=== PATIENT | female | born 1960 | race Caucasian/White ===

== ENCOUNTER 2016-08-24 10:55 | Emergency (ER) | payer OTHER ==
[~2016-08-24] VITALS: Ht 157.5 cm; Wt 57.5 kg
[~2016-08-24 10:55] MED LIST: ADVAIR 250/501 DISK IH; ADVAIR HFA120 INHAL1 IH; ANTIBIOTIC FOR UTI PO; CENTRUM SILVER1 EAC3 PO; CRESTOR40 MG PO; DESYREL100 MG PO; FLONASE16 G1 BOTH NARES; GLUCOPHAGE500 MG PO; KEFLEX500 MG PO; LIBRIUM25 MG PO; LITHIUM CARBON300 MG PO; LITHIUM CARBON600 MG PO; LITHOBID300 MG PO; METFORMIN HCL500 MG PO; MOTRIN800 MG PO; PRAVACHOL40 MG PO; PRAVASTATIN SOD40 MG PO; PROAIR HFA8.5 GM IH; PROZAC20 MG PO; PROZAC40 MG PO; Proventil,Ventolin H IH; TRAZODONE HCL50 MG PO; VITAMIN D1000 INTUN PO; VITAMIN D35000 UNIT PO; VITAMIN D5000 UNIT PO; Vitamin D, Drisdol PO; ZITHROMAX500 MG PO; Zocor PO
[2016-08-24 11:41] LABS: BASOPHIL COUNT 0.1 K/uL (0-0.1); EOSINOPHIL (%) 1.6 % (0-5); EOSINOPHIL COUNT 0.1 K/uL (0-0.3); HEMATOCRIT 42.9 % (36.0-46.0); IMMATURE GRANULOCYTE (%) 0.1 % (0.0-0.7); IMMATURE GRANULOCYTE COUNT 0.1 K/uL; LYMPHOCYTE COUNT 3.8 K/uL (1.0-2.8); MCHC 33.8 G/DL (30.0-36.0); MCV 94.7 FL (83-99); MEAN PLAT.VOLUME 9.4 uM^3 (9.5-12.4); MONOCYTE (%) 7.8 % (3-12); MONOCYTE COUNT 0.6 K/uL (0-0.8); NEUTROPHIL (%) 41.6 % (45-76); NEUTROPHIL COUNT 3.3 K/uL (1.8-6.4); PLATELET COUNT 266 K/uL (156-360); RBC DIS.WIDTH-CV 14.1 % (11.8-14.6); RED BLOOD COUNT 4.53 M/uL (3.80-5.20); WHITE BLOOD COUNT 7.9 K/uL (4.1-10.2)
[2016-08-24 12:01] LABS: CHLORIDE 104 mEq/L (99-109); POTASSIUM 4.6 mEq/L (3.7-5.4); SODIUM 140 mEq/L (136-147)
[2016-08-24 12:04] LABS: GLUCOSE 109 mg/dL (70-99)
[2016-08-24 12:05] LABS: ANION GAP 14 MEQ/L (2-14); TOTAL BILIRUBIN 0.2 mg/dL (0.0-1.0)
[2016-08-24 12:06] LABS: SERUM ETHYL ALCOHOL 228 mg/dL
[2016-08-24 12:07] LABS: ALKALINE PHOSPHATASE 84 IU/L (3-129); GFR ESTIMATE (CALCULATED) > 59 mL/min/
[2016-08-24 12:08] LABS: UREA NITROGEN (BUN) 7 mg/dL (9-23)
[2016-08-24 12:16] LABS: QUANTITATIVE HCG < 4.0 MIU/ML
[2016-08-24 12:30] LABS: AMPHETAMINE NEGATIVE (500 ng/mL); BARBITURATES NEGATIVE (200 ng/mL); BENZODIAZEPINES NEGATIVE (150 ng/mL); COCAINE NEGATIVE (150 ng/mL); INTERNAL CONTROLS VALID? YES; METHADONE NEGATIVE (200 ng/mL); METHAMPHETAMINE NEGATIVE (500 ng/mL); OPIATES (MORPHINE) NEGATIVE (100 ng/mL); OXYCODONE NEGATIVE (100 ng/mL); PHENCYCLIDINE NEGATIVE (25 ng/mL); PROPOXYPHENE NEGATIVE (300 ng/mL); THC CANNABINOIDS NEGATIVE (50 ng/mL); TRICYCLIC ANTIDEPRESSANTS NEGATIVE (300 ng/mL)
[2016-08-24 17:20] VITALS: BP 107/71
== END 2016-08-24 17:25 | disposition home or self-care (01) ==
LOC: EME → EDBD 10:55 → EME 17:25
PROVIDERS: Emergency Medicine
DX: Z04.6 Encounter for general psychiatric examination, requested by authority (principal); F10.10 Alcohol abuse, uncomplicated; F33.1 Major depressive disorder, recurrent, moderate; E11.9 Type 2 diabetes mellitus without complications; F17.200 Nicotine dependence, unspecified, uncomplicated; Z79.84 Long term (current) use of oral hypoglycemic drugs; Z88.0 Allergy status to penicillin
CPT/HCPCS: 80053; 84702; 85025; 90837; 99281; 99285; G0480; J2060; J7030

== ENCOUNTER 2016-10-30 11:34 | Emergency (ER) | payer OTHER ==
[~2016-10-30] VITALS: Ht 157.5 cm; Wt 58.3 kg
[2016-10-30 12:55] LABS: BASOPHIL COUNT 0.1 K/uL (0-0.1); EOSINOPHIL (%) 1.8 % (0-5); EOSINOPHIL COUNT 0.2 K/uL (0-0.3); HEMATOCRIT 44.7 % (36.0-46.0); IMMATURE GRANULOCYTE (%) 0.3 % (0.0-0.7); INSTRUMENT ABS NEUTROPHIL CT 6.2 K/uL; LYMPHOCYTE COUNT 2.9 K/uL (1.0-2.8); MCH 32.2 PG (29.0-34.0); MCHC 34.2 G/DL (30.0-36.0); MCV 94.1 FL (83-99); MEAN PLAT.VOLUME 9.2 uM^3 (9.5-12.4); MONOCYTE (%) 7.7 % (3-12); MONOCYTE COUNT 0.8 K/uL (0-0.8); NEUTROPHIL (%) 61.1 % (45-76); NEUTROPHIL COUNT 6.2 K/uL (1.8-6.4); PLATELET COUNT 342 K/uL (156-360); RBC DIS.WIDTH-CV 14.1 % (11.8-14.6); RBC DIS.WIDTH-SD 48.7 % (39-53); RED BLOOD COUNT 4.75 M/uL (3.80-5.20); WHITE BLOOD COUNT 10.2 K/uL (4.1-10.2)
[2016-10-30 13:03] LABS: CHLORIDE 102 mEq/L (99-109); POTASSIUM 3.8 mEq/L (3.7-5.4); SODIUM 139 mEq/L (136-147)
[2016-10-30 13:05] LABS: GLUCOSE 74 mg/dL (70-99)
[2016-10-30 13:06] LABS: ANION GAP 11 MEQ/L (2-14)
[2016-10-30 13:09] LABS: GFR ESTIMATE (CALCULATED) > 59 mL/min/
[2016-10-30 13:10] LABS: UREA NITROGEN (BUN) 11 mg/dL (9-23)
[2016-10-30] MEDS ORDERED: KEFLEX500 MG PO (13:29)
[2016-10-30] MEDS ORDERED: NORCO 5/3251 TABLET PO (13:29)
[2016-10-30] MEDS ORDERED: NAPROSYN500 MG PO (13:29)
[2016-10-30 13:55] VITALS: BP 119/71
== END 2016-10-30 13:56 | disposition home or self-care (01) ==
LOC: EME 11:34
DX: S92.342A Displaced fracture of fourth metatarsal bone, left foot, initial encounter for closed fracture (principal); W10.9XXA Fall (on) (from) unspecified stairs and steps, initial encounter; E11.9 Type 2 diabetes mellitus without complications; Z79.84 Long term (current) use of oral hypoglycemic drugs
CPT/HCPCS: 73630; 80048; 85025; 99281; 99283

== ENCOUNTER 2016-11-14 14:19 | Emergency (ER) | payer OTHER ==
[~2016-11-14] VITALS: Ht 157.5 cm; Wt 59.0 kg
[~2016-11-14 14:19] MED LIST changes: +NAPROSYN500 MG PO; +NORCO 5/3251 TABLET PO
[2016-11-14 15:05] LABS: MCH 31.7 PG (29.0-34.0); MCHC 34.2 G/DL (30.0-36.0); MCV 92.9 FL (83-99); RBC DIS.WIDTH-CV 14.1 % (11.8-14.6); RBC DIS.WIDTH-SD 48.3 % (39-53); RED BLOOD COUNT 4.63 M/uL (3.80-5.20); WHITE BLOOD COUNT 10.7 K/uL (4.1-10.2)
[2016-11-14 15:14] LABS: CHLORIDE 100 mEq/L (99-109); POTASSIUM 3.6 mEq/L (3.7-5.4); SODIUM 136 mEq/L (136-147)
[2016-11-14 15:16] LABS: GLUCOSE 177 mg/dL (70-99)
[2016-11-14 15:17] LABS: ANION GAP 13 MEQ/L (2-14)
[2016-11-14 15:20] LABS: GFR ESTIMATE (CALCULATED) > 59 mL/min/
[2016-11-14 15:21] LABS: UREA NITROGEN (BUN) 10 mg/dL (9-23)
[2016-11-14 16:20] LABS: HEMATOLOGY COMMENT 1 SN; MEAN PLAT.VOLUME 9.3 uM^3 (9.5-12.4); PLATELET COUNT 369 K/uL (156-360)
[2016-11-14 17:32] VITALS: BP 36/89
== END 2016-11-14 17:41 | disposition home or self-care (01) ==
LOC: EME 14:19
PROVIDERS: Nurse Practitioner Family
DX: S90.822A Blister (nonthermal), left foot, initial encounter (principal); S92.902D Unspecified fracture of left foot, subsequent encounter for fracture with routine healing; E11.9 Type 2 diabetes mellitus without complications; W10.9XXD Fall (on) (from) unspecified stairs and steps, subsequent encounter
CPT/HCPCS: 73630; 80048; 81003; 83605; 85027; 87040; 99281; 99285; J7030

== ENCOUNTER 2016-12-17 12:51 | Inpatient (IN) | payer OTHER ==
[~2016-12-17] VITALS: Ht 157.5 cm; Wt 61.0 kg
[2016-12-17 14:15] LABS: ADD MIUA? NO; BILIRUBIN NEGATIVE; BLOOD NEGATIVE; COLOR COLORLESS ((YELLOW)); GLUCOSE (STRIP) NEGATIVE; KETONES NEGATIVE; LEUKOCYTES NEGATIVE; NITRITE NEGATIVE; PROTEIN (STRIP) NEGATIVE; SPECIFIC GRAVITY 1.002 (1.000-1.030); UCUL ADDED? NO; UROBILINOGEN 0.2 MG/DL (0.2-1.0)
[2016-12-17 14:34] LABS: AMPHETAMINE NEGATIVE (500 ng/mL); BARBITURATES NEGATIVE (200 ng/mL); BENZODIAZEPINES NEGATIVE (150 ng/mL); COCAINE NEGATIVE (150 ng/mL); INTERNAL CONTROLS VALID? YES; METHADONE NEGATIVE (200 ng/mL); METHAMPHETAMINE NEGATIVE (500 ng/mL); OPIATES (MORPHINE) NEGATIVE (100 ng/mL); OXYCODONE NEGATIVE (100 ng/mL); PHENCYCLIDINE NEGATIVE (25 ng/mL); PROPOXYPHENE NEGATIVE (300 ng/mL); THC CANNABINOIDS NEGATIVE (50 ng/mL); TRICYCLIC ANTIDEPRESSANTS NEGATIVE (300 ng/mL)
[2016-12-17 15:17] LABS: BASOPHIL COUNT 0.1 K/uL (0-0.1); EOSINOPHIL (%) 1.8 % (0-5); EOSINOPHIL COUNT 0.2 K/uL (0-0.3); HEMATOCRIT 44.6 % (36.0-46.0); IMMATURE GRANULOCYTE (%) 0.4 % (0.0-0.7); INSTRUMENT ABS NEUTROPHIL CT 7.4 K/uL; LYMPHOCYTE COUNT 2.9 K/uL (1.0-2.8); MCH 31.6 PG (29.0-34.0); MCHC 33.4 G/DL (30.0-36.0); MCV 94.5 FL (83-99); MEAN PLAT.VOLUME 9.2 uM^3 (9.5-12.4); MONOCYTE (%) 5.7 % (3-12); MONOCYTE COUNT 0.6 K/uL (0-0.8); NEUTROPHIL (%) 65.4 % (45-76); NEUTROPHIL COUNT 7.4 K/uL (1.8-6.4); PLATELET COUNT 344 K/uL (156-360); RBC DIS.WIDTH-CV 13.2 % (11.8-14.6); RBC DIS.WIDTH-SD 46.6 % (39-53); RED BLOOD COUNT 4.72 M/uL (3.80-5.20); WHITE BLOOD COUNT 11.3 K/uL (4.1-10.2)
[2016-12-17 15:28] LABS: CHLORIDE 105 mEq/L (99-109); POTASSIUM 3.9 mEq/L (3.7-5.4); SODIUM 139 mEq/L (136-147)
[2016-12-17 15:31] LABS: GLUCOSE 87 mg/dL (70-99)
[2016-12-17 15:32] LABS: ANION GAP 15 MEQ/L (2-14); TOTAL BILIRUBIN 0.3 mg/dL (0.0-1.0)
[2016-12-17 15:33] LABS: SERUM ETHYL ALCOHOL 242 mg/dL
[2016-12-17 15:34] LABS: GFR ESTIMATE (CALCULATED) > 59 mL/min/
[2016-12-17 15:35] LABS: ALKALINE PHOSPHATASE 92 IU/L (3-129)
[2016-12-17 15:36] LABS: UREA NITROGEN (BUN) 8 mg/dL (9-23)
[2016-12-17 15:38] LABS: SALICYLATE < 5.0 MG/DL (15-30)
[2016-12-17 15:44] LABS: QUANTITATIVE HCG < 4.0 MIU/ML
[2016-12-18] MEDS ORDERED: VITAMIN D-3 401 EACH PO (00:23)
[2016-12-18] MEDS ORDERED: CRESTOR40 MG PO (00:24)
[2016-12-18] MEDS ORDERED: ATARAX,VISTARIL25 MG PO (00:24)
[2016-12-18 03:54] VITALS: BP 105/64
[2016-12-18 08:11] VITALS: BP 92/58
[2016-12-18 11:50] VITALS: BP 94/58
[2016-12-18 16:19] VITALS: BP 119/58
[2016-12-19 08:00] VITALS: BP 115/69
[2016-12-19 15:59] VITALS: BP 141/78
[2016-12-20 07:46] VITALS: BP 110/71
[2016-12-20 15:30] VITALS: BP 107/61
[2016-12-21 07:48] VITALS: BP 108/69
[2016-12-21 16:11] VITALS: BP 115/72
[2016-12-22 07:46] VITALS: BP 115/65
[2016-12-22 15:52] VITALS: BP 102/68
[2016-12-23 07:52] VITALS: BP 110/74
[2016-12-23] MEDS ORDERED: PROZAC40 MG PO (09:20)
[2016-12-23] MEDS ORDERED: BUSPAR10 MG PO (09:20)
[2016-12-23] MEDS ORDERED: FLUOXETINE HCL20 MG PO (09:20)
[2016-12-23] MEDS ORDERED: NALTREXONE HCL50 MG PO (09:20)
== END 2016-12-23 10:42 | disposition home or self-care (01) | DRG 885 ==
LOC: EME 12:51 → EDOF 23:41 → 1WEST 23:41
PROVIDERS: Emergency Medicine
DX: F33.9 Major depressive disorder, recurrent, unspecified (principal); F10.229 Alcohol dependence with intoxication, unspecified; E78.00 Pure hypercholesterolemia, unspecified; E11.9 Type 2 diabetes mellitus without complications; Z79.84 Long term (current) use of oral hypoglycemic drugs; Z63.8 Other specified problems related to primary support group; F17.210 Nicotine dependence, cigarettes, uncomplicated; Y90.8 Blood alcohol level of 240 mg/100 ml or more
CPT/HCPCS: 80053; 81003; 84702; 85025; 90837; 97150 GO; 97165 GO; 99281; 99284; G0480; Q0177

== ENCOUNTER → 2017-01-23 | Outpatient (CLI) | payer OTHER ==
[~2017-01-23] MED LIST changes: +ATARAX,VISTARIL25 MG PO; +BUSPAR10 MG PO; +FLUOXETINE HCL20 MG PO; +NALTREXONE HCL50 MG PO; +VITAMIN D-3 401 EACH PO
== END | disposition home or self-care (01) ==
LOC: RAD 09:45
DX: J84.10 Pulmonary fibrosis, unspecified (principal)
CPT/HCPCS: 71020

== ENCOUNTER 2017-01-30 04:08 | Emergency (ER) | payer OTHER ==
[~2017-01-30] VITALS: Ht 157.5 cm; Wt 57.9 kg
[2017-01-30 04:50] LABS: HEMATOCRIT 38.7 % (36.0-46.0); MCH 31.1 PG (29.0-34.0); MCHC 33.6 G/DL (30.0-36.0); MCV 92.6 FL (83-99); MEAN PLAT.VOLUME 8.4 uM^3 (9.5-12.4); PLATELET COUNT 435 K/uL (156-360); RBC DIS.WIDTH-CV 13.2 % (11.8-14.6); RBC DIS.WIDTH-SD 44.9 % (39-53); RED BLOOD COUNT 4.18 M/uL (3.80-5.20); WHITE BLOOD COUNT 11.2 K/uL (4.1-10.2)
[2017-01-30 05:02] LABS: CHLORIDE 105 mEq/L (99-109); POTASSIUM 3.7 mEq/L (3.7-5.4); SODIUM 143 mEq/L (136-147)
[2017-01-30 05:04] LABS: GLUCOSE 121 mg/dL (70-99)
[2017-01-30 05:05] LABS: ANION GAP 13 MEQ/L (2-14)
[2017-01-30 05:07] LABS: GFR ESTIMATE (CALCULATED) > 59 mL/min/; SERUM ETHYL ALCOHOL 239 mg/dL
[2017-01-30 05:08] LABS: UREA NITROGEN (BUN) 6 mg/dL (9-23)
[2017-01-30 12:46] VITALS: BP 139/80
== END 2017-01-30 12:48 | disposition home or self-care (01) ==
LOC: EME 04:08
PROVIDERS: Emergency Medicine
DX: F10.129 Alcohol abuse with intoxication, unspecified (principal); Y90.7 Blood alcohol level of 200-239 mg/100 ml; F33.1 Major depressive disorder, recurrent, moderate; Z04.6 Encounter for general psychiatric examination, requested by authority; E11.9 Type 2 diabetes mellitus without complications; Z88.0 Allergy status to penicillin; F17.200 Nicotine dependence, unspecified, uncomplicated
CPT/HCPCS: 80048; 81003; 85027; 90837; 99281; 99285; G0480; J1630

== ENCOUNTER 2017-02-06 10:19 | Emergency (ER) | payer OTHER ==
[~2017-02-06] VITALS: Ht 157.5 cm; Wt 59.4 kg
[2017-02-06 12:19] LABS: HEMATOCRIT 40.4 % (36.0-46.0); MCH 31.5 PG (29.0-34.0); MCHC 33.4 G/DL (30.0-36.0); MCV 94.2 FL (83-99); RBC DIS.WIDTH-CV 13.7 % (11.8-14.6); RBC DIS.WIDTH-SD 47.3 % (39-53); RED BLOOD COUNT 4.29 M/uL (3.80-5.20); WHITE BLOOD COUNT 6.9 K/uL (4.1-10.2)
[2017-02-06 12:34] LABS: CHLORIDE 109 mEq/L (99-109); POTASSIUM 3.7 mEq/L (3.7-5.4); SODIUM 145 mEq/L (136-147)
[2017-02-06 12:36] LABS: GLUCOSE 124 mg/dL (70-99)
[2017-02-06 12:36] LABS: POINT-OF-CARE METER ID UU13113702
[2017-02-06 12:38] LABS: ANION GAP 12 MEQ/L (2-14)
[2017-02-06 12:39] LABS: SERUM ETHYL ALCOHOL 270 mg/dL
[2017-02-06 12:40] LABS: GFR ESTIMATE (CALCULATED) > 59 mL/min/
[2017-02-06 12:41] LABS: UREA NITROGEN (BUN) 4 mg/dL (9-23)
[2017-02-06 13:28] LABS: MEAN PLAT.VOLUME 9.4 uM^3 (9.5-12.4); PLAT.SUFFICIENCY ADEQUATE
[2017-02-06 13:29] LABS: PLATELET COUNT 303 K/uL (156-360)
[2017-02-06 13:31] LABS: POINT-OF-CARE METER ID UU13113702
[2017-02-06 14:53] VITALS: BP 99/66
[2017-02-09 12:38] LABS: POINT-OF-CARE METER ID UU13113747
== END 2017-02-06 15:06 | disposition home or self-care (01) ==
LOC: EME → EDBD 10:19 → EME 15:06
PROVIDERS: Emergency Medicine
DX: F10.129 Alcohol abuse with intoxication, unspecified (principal); E11.649 Type 2 diabetes mellitus with hypoglycemia without coma; F17.200 Nicotine dependence, unspecified, uncomplicated
CPT/HCPCS: 80048; 82948; 85027; 99281; 99285; G0480

== ENCOUNTER 2017-02-13 19:37 | Emergency (ER) | payer OTHER ==
[~2017-02-13] VITALS: Ht 167.6 cm; Wt 59.2 kg
[2017-02-13 20:04] LABS: ADD MIUA? NO; BILIRUBIN NEGATIVE; BLOOD NEGATIVE; COLOR COLORLESS ((YELLOW)); GLUCOSE (STRIP) NEGATIVE; KETONES NEGATIVE; LEUKOCYTES NEGATIVE; NITRITE NEGATIVE; PROTEIN (STRIP) NEGATIVE; SPECIFIC GRAVITY 1.002 (1.000-1.030); UCUL ADDED? NO; UROBILINOGEN 0.2 MG/DL (0.2-1.0)
[2017-02-13 20:04] LABS: HEMATOCRIT 43.2 % (36.0-46.0); MCH 30.9 PG (29.0-34.0); MCHC 32.6 G/DL (30.0-36.0); MCV 94.7 FL (83-99); PLATELET COUNT 271 K/uL (156-360); RBC DIS.WIDTH-SD 51.7 % (39-53); RED BLOOD COUNT 4.56 M/uL (3.80-5.20); WHITE BLOOD COUNT 9.7 K/uL (4.1-10.2)
[2017-02-13 20:09] LABS: CHLORIDE 101 mEq/L (99-109); POTASSIUM 3.9 mEq/L (3.7-5.4); SODIUM 134 mEq/L (136-147)
[2017-02-13 20:12] LABS: GLUCOSE 103 mg/dL (70-99)
[2017-02-13 20:13] LABS: ANION GAP 12 MEQ/L (2-14); TOTAL BILIRUBIN 0.3 mg/dL (0.0-1.0)
[2017-02-13 20:13] LABS: ADD MEDTOX COMMENT Y; AMPHETAMINE NEGATIVE (500 ng/mL); BARBITURATES NEGATIVE (200 ng/mL); BENZODIAZEPINES PRESUMPTIVE POSITIVE (150 ng/mL); COCAINE NEGATIVE (150 ng/mL); INTERNAL CONTROLS VALID? YES; METHADONE NEGATIVE (200 ng/mL); METHAMPHETAMINE NEGATIVE (500 ng/mL); OPIATES (MORPHINE) NEGATIVE (100 ng/mL); OXYCODONE NEGATIVE (100 ng/mL); PHENCYCLIDINE NEGATIVE (25 ng/mL); PROPOXYPHENE NEGATIVE (300 ng/mL); THC CANNABINOIDS NEGATIVE (50 ng/mL); TRICYCLIC ANTIDEPRESSANTS NEGATIVE (300 ng/mL)
[2017-02-13 20:14] LABS: SERUM ETHYL ALCOHOL 264 mg/dL
[2017-02-13 20:15] LABS: ALKALINE PHOSPHATASE 94 IU/L (3-129); GFR ESTIMATE (CALCULATED) > 59 mL/min/
[2017-02-13 20:16] LABS: UREA NITROGEN (BUN) 5 mg/dL (9-23)
[2017-02-13 21:01] LABS: BENZODIAZEPINES QUANT VALUE 0 NG/ML; BENZODIAZEPINES, URINE SCREEN Negative (200 ng/mL)
[2017-02-14] MEDS ORDERED: LIBRIUM25 MG PO (05:58)
[2017-02-14 06:37] VITALS: BP 119/87
== END 2017-02-14 06:38 | disposition home or self-care (01) ==
LOC: EME 19:37
PROVIDERS: Emergency Medicine
DX: F10.129 Alcohol abuse with intoxication, unspecified (principal); F25.9 Schizoaffective disorder, unspecified; F32.9 Major depressive disorder, single episode, unspecified; E11.9 Type 2 diabetes mellitus without complications; F17.200 Nicotine dependence, unspecified, uncomplicated
CPT/HCPCS: 80053; 81003; 84999; 85027; 90837; 99281; 99284; G0480